=== PATIENT | female | born 1985 | race Caucasian/White ===

== ENCOUNTER 2023-08-18 20:44 | Emergency (ER) | payer SELFPAY ==
[~2023-08-18] VITALS: Ht 160 cm; Wt 54.4 kg
[2023-08-18] MEDS ORDERED: AMOX-430 PO (22:12)
[2023-08-18] MEDS ORDERED: TDAP [DIPH/PERTUSSIS/TET] 0.5 ML VIAL IM ONE (22:23)
[2023-08-18] MEDS ORDERED: AMOX/CLAVULANATE 875 MG TABLET ONE (22:23)
[2023-08-18] MEDS: TDAP [DIPH/PERTUSSIS/TET] 0.5 ML VIAL IM ONE (22:25)
[2023-08-18] MEDS: AMOX/CLAVULANATE 875 MG TABLET PO ONE (22:26)
[2023-08-18 22:40] VITALS: BP 99/84; TEMP 98.2; O2SAT 100
== END 2023-08-18 22:45 | disposition home or self-care (01) ==
LOC: ER 20:48
DX: S40.812A Abrasion of left upper arm, initial encounter (principal); S40.811A Abrasion of right upper arm, initial encounter; S80.812A Abrasion, left lower leg, initial encounter; S80.811A Abrasion, right lower leg, initial encounter; W55.03XA Scratched by cat, initial encounter; Y93.89 Activity, other specified; Y92.89 Other specified places as the place of occurrence of the external cause; Y99.8 Other external cause status
CPT/HCPCS: 90715